=== PATIENT | female | born 1975 | race Asian ===

== ENCOUNTER 2017-05-20 07:33 | Emergency (ER) | payer OTHER ==
[2017-05-20 08:13] LABS: CALCIUM 9.1 mg/dL (8.5-10.1); CARBON DIOXIDE 25.4 mmol/L (21-32); CHLORIDE SERUM 102 mmol/L (98-107); CREATININE SERUM 0.6 mg/dL (0.6-1.0); GFR1 > 60 mL/min; GLUCOSE SERUM 104 mg/dL (74-106); POTASSIUM SERUM 3.7 mmol/L (3.5-5.1); SODIUM SERUM 134 mmol/L (136-145)
[2017-05-20 08:20] LABS: ALBUMIN 3.3 g/dL (3.4-5.0); ALKALINE PHOSPHATASE 37 U/L (46-116); ALT/SGPT 27 U/L (14-59); AST/SGOT 18 U/L (15-37); BASOPHIL % 0.3 % (0-2); BILIRUBIN TOTAL 0.4 mg/dL (0.20-1.00); PLATELET COUNT 344 x10^3mcL (130-400); RED CELL DISTRIBUTION WIDTH 13.7 % (11.5-14.5); TOTAL PROTEIN, SERUM 7.7 g/dL (6.4-8.2)
[2017-05-20 09:40] VITALS: BP 101/65
== END 2017-05-20 11:05 | disposition home or self-care (01) ==
LOC: ED 07:33
PROVIDERS: Emergency Medicine
DX: M79.89 Other specified soft tissue disorders (principal)
CPT/HCPCS: 36415; Q0092

== ENCOUNTER 2017-05-24 16:34 | Inpatient (IN) | payer OTHER ==
[~2017-05-24] VITALS: Ht 162.6 cm; Wt 56.2 kg
[2017-05-24] MEDS ORDERED: TYLENOL (18:20)
[2017-05-24] MEDS ORDERED: PRENATAL VITAMI1 TA1 PO (18:21)
[2017-05-24 18:53] LABS: BASOPHIL % 0.3 % (0-2); PLATELET COUNT 310 x10^3mcL (130-400); RED CELL DISTRIBUTION WIDTH 13.6 % (11.5-14.5)
[2017-05-24 19:03] LABS: CALCIUM 9.2 mg/dL (8.5-10.1); CARBON DIOXIDE 25.3 mmol/L (21-32); CHLORIDE SERUM 100 mmol/L (98-107); CREATININE SERUM 0.6 mg/dL (0.6-1.0); GFR1 > 60 mL/min; GLUCOSE SERUM 90 mg/dL (74-106); POTASSIUM SERUM 3.6 mmol/L (3.5-5.1); SODIUM SERUM 135 mmol/L (136-145)
[2017-05-24 19:08] LABS: ALBUMIN 3.5 g/dL (3.4-5.0); ALKALINE PHOSPHATASE 45 U/L (46-116); ALT/SGPT 25 U/L (14-59); AST/SGOT 17 U/L (15-37); BILIRUBIN TOTAL 0.5 mg/dL (0.20-1.00); TOTAL PROTEIN, SERUM 8.2 g/dL (6.4-8.2)
[2017-05-24 19:43] VITALS: BP 100/69
[2017-05-24 19:47] VITALS: Ht 162.6 cm; Wt 56.2 kg
[2017-05-24 19:51] LABS: MAGNESIUM 2.3 mg/dL (1.8-2.4)
[2017-05-24 19:54] LABS: CHOLESTEROL/HDL RATIO 1.8
[2017-05-24 19:55] LABS: T3 TOTAL 1.15 ng/mL
[2017-05-24 20:01] LABS: FREE T4 1.35 ng/dL (0.76-1.46); FREE THYROXINE INDEX 3.4 ug/dL (1.4-4.5); T4(THYROXINE) 10.3 ug/dL (4.7-13.3)
[2017-05-25 02:58] LABS: microscopic required? NO
[2017-05-25 03:17] LABS: urine erythrocyte NEGATIVE (NEGATIVE)
[2017-05-25 06:30] VITALS: BP 86/49
[2017-05-25 08:05] LABS: CALCIUM 8.6 mg/dL (8.5-10.1); CHLORIDE SERUM 106 mmol/L (98-107); CREATININE SERUM 0.5 mg/dL (0.6-1.0); GFR1 > 60 mL/min; GLUCOSE SERUM 95 mg/dL (74-106); POTASSIUM SERUM 4.1 mmol/L (3.5-5.1); SODIUM SERUM 140 mmol/L (136-145)
[2017-05-25 08:18] LABS: BASOPHIL % 0.4 % (0-2); PLATELET COUNT 311 x10^3mcL (130-400); RED CELL DISTRIBUTION WIDTH 13.7 % (11.5-14.5)
[2017-05-25 10:37] VITALS: BP 96/46
[2017-05-25 14:09] VITALS: BP 88/49
[2017-05-25 18:03] VITALS: BP 86/54
[2017-05-25 21:03] VITALS: BP 104/73
[2017-05-26 04:39] VITALS: BP 89/55
[2017-05-26 07:55] LABS: BASOPHIL % 0.3 % (0-2); PLATELET COUNT 337 x10^3mcL (130-400); RED CELL DISTRIBUTION WIDTH 13.8 % (11.5-14.5)
[2017-05-26 10:16] VITALS: BP 99/60
[2017-05-26] MEDS ORDERED: VINATE M1 TAB PO (14:33)
[2017-05-26] MEDS ORDERED: LOV60I SC (14:33)
[2017-05-26] MEDS ORDERED: REG5 PO (14:34)
[2017-05-26 17:30] VITALS: BP 94/61
== END 2017-05-26 19:40 | disposition home or self-care (01) | DRG 782 ==
LOC: ED 16:34 → DU 17:58 → MU 05-25 18:24
PROVIDERS: Emergency Medicine; ADMIT Family Medicine
DX: O22.31 Deep phlebothrombosis in pregnancy, first trimester (principal); I82.441 Acute embolism and thrombosis of right tibial vein; I82.431 Acute embolism and thrombosis of right popliteal vein; E87.1 Hypo-osmolality and hyponatremia; N83.201 Unspecified ovarian cyst, right side; Z3A.08 8 weeks gestation of pregnancy; Z68.22 Body mass index [BMI] 22.0-22.9, adult; Z83.3 Family history of diabetes mellitus; Z82.49 Family history of ischemic heart disease and other diseases of the circulatory system
CPT/HCPCS: 83880; 84439; J1644; J1650; J7030; Q0092

== ENCOUNTER → 2017-06-08 | Outpatient (CLI) | payer OTHER ==
[~2017-06-08] MED LIST: LOV60I SC; PRENATAL VITAMI1 TA1 PO; REG5 PO; TYLENOL; VINATE M1 TAB PO
[2017-06-08 09:01] LABS: BASOPHIL % 0.3 % (0-2); PLATELET COUNT 390 x10^3mcL (130-400); RED CELL DISTRIBUTION WIDTH 13.4 % (11.5-14.5)
[2017-06-08 09:02] LABS: UA SPECIFIC GRAVITY 1.015 (1.005-1.035); microscopic required? YES; urine erythrocyte NEGATIVE (NEGATIVE)
[2017-06-08 09:04] LABS: GLUCOSE FASTING 85 mg/dL (70-110)
[2017-06-09 09:04] LABS: RAPID PLASMA REAGIN Non Reactive (Non Reactive)
== END | disposition home or self-care (01) ==
LOC: LB 07:44
DX: Z34.90 Encounter for supervision of normal pregnancy, unspecified, unspecified trimester (principal); Z11.3 Encounter for screening for infections with a predominantly sexual mode of transmission; N30.00 Acute cystitis without hematuria
CPT/HCPCS: 81241

== ENCOUNTER 2019-11-25 19:35 | Emergency (ER) | payer OTHER ==
[~2019-11-25] VITALS: Ht 160 cm; Wt 54.4 kg
[2019-11-25 19:46] VITALS: Ht 160 cm; Wt 54.4 kg
[2019-11-25 20:48] VITALS: BP 95/62
== END 2019-11-25 21:10 | disposition home or self-care (01) ==
LOC: ED 19:35
DX: M79.662 Pain in left lower leg (principal); Z98.890 Other specified postprocedural states
CPT/HCPCS: Q0092